=== PATIENT | female | born 1940 | race Caucasian/White ===

== ENCOUNTER 2017-07-18 10:23 | Emergency (ER) | payer MEDICARE, MEDICAID ==
[~2017-07-18] VITALS: Ht 165.1 cm; Wt 81.6 kg
[~2017-07-18 10:23] MED LIST: ARTANE; ATARAX; DIPH-120; GABA100C; GLIP-116; LASIX 40 MG; LORA1TAB12; METF-370; METO25TA5; OMEP20TA34; PAXIL; QUET25TA37; SIMV10TA84; TRAM50TA2; TRILAFON; [UNRECOGNIZED DRUG - OTHER]; [UNRECOGNIZED DRUG - OTHER] PO
[2017-07-18 10:29] VITALS: BP 0/0
== END 2017-07-18 16:27 | disposition expired ==
LOC: EDBD 10:23 → ER 10:23
DX: I46.9 Cardiac arrest, cause unspecified (principal); N18.9 Chronic kidney disease, unspecified; I12.9 Hypertensive chronic kidney disease with stage 1 through stage 4 chronic kidney disease, or unspecified chronic kidney disease; E11.22 Type 2 diabetes mellitus with diabetic chronic kidney disease; K21.9 Gastro-esophageal reflux disease without esophagitis; F32.9 Major depressive disorder, single episode, unspecified; F20.9 Schizophrenia, unspecified; E78.5 Hyperlipidemia, unspecified; F17.210 Nicotine dependence, cigarettes, uncomplicated; Z46.82 Encounter for fitting and adjustment of non-vascular catheter; Z90.710 Acquired absence of both cervix and uterus; Z79.84 Long term (current) use of oral hypoglycemic drugs; Z93.0 Tracheostomy status; Z98.51 Tubal ligation status
CPT/HCPCS: 92950